=== PATIENT | male | born 1955 | race Caucasian/White ===

== ENCOUNTER 2017-02-09 19:45 | Emergency (ER) | payer OTHER ==
[2017-07-04] MEDS ORDERED: VENTOLIN HFA IN18 GM INH (13:16)
[2017-07-04] MEDS ORDERED: REQUIP4 MG PO (13:16)
[2017-07-04] MEDS ORDERED: DUONEB 2.5-0.5M1 AMP INH (13:17)
[2017-07-04] MEDS ORDERED: PRILOSEC20 MG PO (13:17)
[2017-07-04] MEDS ORDERED: VIBRAMYCIN100 MG PO (13:18)
[2017-07-04] MEDS ORDERED: NICOTINE PATCH1 EAC1 TOP (13:19)
== END 2017-02-09 21:40 ==
LOC: FER 19:45
DX: J44.9 Chronic obstructive pulmonary disease, unspecified (principal); F17.210 Nicotine dependence, cigarettes, uncomplicated; Z88.7 Allergy status to serum and vaccine; Z79.51 Long term (current) use of inhaled steroids
CPT/HCPCS: 94640; 94760; J2930

== ENCOUNTER 2017-07-24 01:53 | Emergency (ER) | payer OTHER ==
[~2017-07-24 01:53] MED LIST: DUONEB 2.5-0.5M1 AMP INH; NICOTINE PATCH1 EAC1 TOP; PRILOSEC20 MG PO; REQUIP4 MG PO; VENTOLIN HFA IN18 GM INH; VIBRAMYCIN100 MG PO
== END 2017-07-24 02:57 | disposition home or self-care (01) ==
LOC: FER 01:53
DX: M77.9 Enthesopathy, unspecified (principal); J44.9 Chronic obstructive pulmonary disease, unspecified; F17.210 Nicotine dependence, cigarettes, uncomplicated; Z88.8 Allergy status to other drugs, medicaments and biological substances; Z79.899 Other long term (current) drug therapy
CPT/HCPCS: 73110; J1885; J2930

== ENCOUNTER 2020-11-11 17:31 | Emergency (ER) | payer MEDICARE ==
[~2020-11-11 17:31] MED LIST changes: +ALBUTEROL0.5 ML/AMP INH; +ASPIRIN325 MG PO; +AZITHROMYCIN250 MG PO; +BACLOFEN 10MG T10 MG PO; +BACLOFEN 20MG T20 MG PO; +BENTYL10 MG PO; +CLONAZEPAM0.25 MG PO; +COLCRYS0.6 MG PO; +CYANOCOBAL1000 MCG/1 SC; +CYCLOBENZAPRINE10 MG PO; +DULCOLAX5 MG PO; +DULERA 200 MCG8.8 GM INH; +DUONEB 2.5-0.5M1 AMP NEB; +HYDROCODON-ACE1 EAC4 PO; +IBUPROFEN800 MG PO; +KEFLEX250 MG PO; +MEDROL 4MG DOSEP4 MG PO; +METRONIDAZOLE500 MG PO; +NAPROXEN500 MG PO; +NICOTINE PATCH1 EAC2 EXT; +NORCO 5-325 TA1 EACH PO; +ONDANSETRON HCL4 MG PO; +PERCOCET 10-321 EACH PO; +PERCOCET 5-3251 EACH PO; +PREDNISONE 10MG10 MG PO; +PREDNISONE 20MG20 MG PO; +PROAIR HFA8.5 GM INH; +ROBAXIN750 MG PO; +ROPINIROLE HCL2 MG PO; +SKELAXIN800 MG PO; +SPIRIVA 185 PUFFS/IN INH; +TESSALON PERLE100 M1 PO; +TOPROL XL 25MG25 MG PO; +TRAMADOL HCL50 MG PO; +ULTRAM50 MG PO; +VENTOLIN (2.5 MG/3 M INH; +VITAMIN D250000 UNIT PO; +ZOFRAN ODT4 MG SL; +ZOFRAN4 MG PO; +ZPAK PO
== END 2020-11-11 18:00 | disposition home or self-care (01) ==
LOC: FER 17:31
DX: R06.02 Shortness of breath (principal); R06.2 Wheezing; R05 Cough; Z53.8 Procedure and treatment not carried out for other reasons

== ENCOUNTER 2020-11-22 10:33 | Emergency (ER) | payer MEDICARE, OTHER ==
[2020-11-22 11:38] LABS: BASOPHIL 0.7 % (0-2); EOSINOPHIL 6.5 % (0-7); HCT 46.7 % (42.0-52.0); HGB 15.5 g/dl (13.2-18.0); LYMPHOCYTE 26.9 % (15-48); MCH 34.6 pg (25.0-31.0); MCHC 33.2 g/dL (32.0-36.0); MCV 104.2 fL (78.0-100.0); MONOCYTE 8.8 % (0-12); MPV 10.2 fL (6.0-9.5); NEUTROPHIL 56.7 % (41-80); NRBC 0; PLT 188 K/uL (150-400); RBC 4.48 M/uL (4.70-6.00); RDW 12.2 % (11.5-14.0)
[2020-11-22 11:59] LABS: ALBUMIN 3.4 g/dL (3.4-5.0); BILIRUBIN - TOTAL 0.7 mg/dL (0.2-1.0); BUN/CREAT RATIO (CALC) 10.4 RATIO; CREATININE 0.96 mg/dL (0.67-1.17); GLOBULIN (CALCULATION) 3.4 g/dL; POTASSIUM 3.8 mmol/L (3.5-5.1); TOTAL PROTEIN 6.8 g/dL (6.4-8.2)
[2020-11-22] MEDS ORDERED: MEDROL 4MG DOSEP4 MG PO (12:09)
== END 2020-11-22 12:10 | disposition home or self-care (01) ==
LOC: FER 10:33
PROVIDERS: Emergency Medicine
DX: J44.1 Chronic obstructive pulmonary disease with (acute) exacerbation (principal)
CPT/HCPCS: 36415; 71045; 80053; 85025; 93005; 94640; 94664; J2930

== ENCOUNTER 2020-11-29 14:43 | Inpatient (IN) | payer MEDICARE, SELFPAY ==
[2020-11-29 15:17] LABS: BASOPHIL 0.4 % (0-2); EOSINOPHIL 5.6 % (0-7); HCT 48.8 % (42.0-52.0); HGB 16.3 g/dl (13.2-18.0); MCH 34.9 pg (25.0-31.0); MCHC 33.4 g/dL (32.0-36.0); MCV 104.5 fL (78.0-100.0); MONOCYTE 10.3 % (0-12); MPV 10.1 fL (6.0-9.5); NEUTROPHIL 48.2 % (41-80); NRBC 0; PLT 199 K/uL (150-400); RBC 4.67 M/uL (4.70-6.00); RDW 12.2 % (11.5-14.0); WBC 7.7 K/uL (4.0-10.5)
[2020-11-29 15:35] LABS: ALBUMIN 3.6 g/dL (3.4-5.0); BILIRUBIN - TOTAL 0.9 mg/dL (0.2-1.0); BUN/CREAT RATIO (CALC) 12.4 RATIO; CREATININE 1.05 mg/dL (0.67-1.17); GLOBULIN (CALCULATION) 2.9 g/dL; POTASSIUM 4.9 mmol/L (3.5-5.1); TOTAL PROTEIN 6.5 g/dL (6.4-8.2)
--- NOTE | 2020-11-30 16:51 | NUR ---
11/30/20 MR. Landin is from his spouse. He lives with a friend and the friend's 3 daughters. Mr. Landin is experiencing anxiety. He was instructed in relaxation exercise. An appointment was scheduled at [facility] for 12/13/20 at 1:30. Patient was also provided with smoking cessation informational booklet. - A nebulizer was ordered from [facility]. - Mr. Landin would like home 02. He does not qualify. MS Thais RN, will monitor 02 saturation during sleep tonight.
[2020-12-01 07:02] LABS: BASOPHIL 0.1 % (0-2); EOSINOPHIL 0 % (0-7); HCT 45.1 % (42.0-52.0); HGB 14.8 g/dl (13.2-18.0); LYMPHOCYTE 6.2 % (15-48); MCH 34.4 pg (25.0-31.0); MCHC 32.8 g/dL (32.0-36.0); MCV 104.9 fL (78.0-100.0); MONOCYTE 3.6 % (0-12); MPV 10.6 fL (6.0-9.5); NEUTROPHIL 89.4 % (41-80); NRBC 0; PLT 191 K/uL (150-400); RDW 12.2 % (11.5-14.0); WBC 10.2 K/uL (4.0-10.5)
[2020-12-01 07:21] LABS: BUN/CREAT RATIO (CALC) 19.8 RATIO; CREATININE 0.86 mg/dL (0.67-1.17); POTASSIUM 4.2 mmol/L (3.5-5.1)
[2020-12-01] MEDS ORDERED: NICOTINE PATCH1 EAC2 TD (07:58)
[2020-12-01] MEDS ORDERED: CLONAZEPAM0.5 MG PO (07:58)
[2020-12-01] MEDS ORDERED: PREDNISONE 20MG20 MG PO (07:58)
[2020-12-01] MEDS ORDERED: AZITHROMYCIN250 MG PO (07:58)
[2020-12-01] MEDS ORDERED: MUCINEX 600MG600 MG PO (07:58)
[2020-12-01] MEDS ORDERED: SYMBICORT 80-10.2 GM INH (07:58)
[2020-12-01] MEDS ORDERED: REMERON15 MG PO (07:58)
[2020-12-01] MEDS ORDERED: SPIRIVA RESPIMAT4 G1 INH (07:58)
[2020-12-01] MEDS ORDERED: TOPROL XL 50 MG50 MG PO (07:58)
[2020-12-01] MEDS ORDERED: VENTOLIN HFA IN18 GM INH (10:19)
== END 2020-12-01 11:50 | disposition home or self-care (01) | DRG 192 ==
LOC: FER 14:43 → FMS 18:16
PROVIDERS: Emergency Medicine; ADMIT Allergy & Immunology Allergy
DX: J44.1 Chronic obstructive pulmonary disease with (acute) exacerbation (principal); F41.1 Generalized anxiety disorder; F17.200 Nicotine dependence, unspecified, uncomplicated; Z20.822 Contact with and (suspected) exposure to COVID-19; K21.9 Gastro-esophageal reflux disease without esophagitis; M19.90 Unspecified osteoarthritis, unspecified site; G25.81 Restless legs syndrome; F32.9 Major depressive disorder, single episode, unspecified; G89.29 Other chronic pain; M54.9 Dorsalgia, unspecified; Z90.49 Acquired absence of other specified parts of digestive tract; Z98.890 Other specified postprocedural states; Z85.89 Personal history of malignant neoplasm of other organs and systems; G47.00 Insomnia, unspecified
CPT/HCPCS: 36415; 71045; 71275; 80048; 80053; 83880; 84484; 85025; 85379; 93005; 94640; 94664; J0456; J1650; J2060; J2920; J2930; J7050; Q9967; U0002

== ENCOUNTER 2021-07-27 12:24 | Emergency (ER) | payer MEDICARE ==
[~2021-07-27 12:24] MED LIST changes: +CLONAZEPAM0.5 MG PO; +MUCINEX 600MG600 MG PO; +NICOTINE PATCH1 EAC2 TD; +REMERON15 MG PO; +SPIRIVA RESPIMAT4 G1 INH; +SPIRIVA18 MCG INH; +SYMBICORT 80-10.2 GM INH; +TOPROL XL 50 MG50 MG PO
[2021-07-27 13:33] LABS: BASOPHIL 0.8 % (0-2); EOSINOPHIL 4.7 % (0-7); HCT 49.4 % (42.0-52.0); HGB 16.7 g/dl (13.2-18.0); LYMPHOCYTE 24.7 % (15-48); MCH 35.8 pg (25.0-31.0); MCHC 33.8 g/dL (32.0-36.0); MCV 105.8 fL (78.0-100.0); MPV 10.5 fL (6.0-9.5); NRBC 0; PLT 207 K/uL (150-400); RBC 4.67 M/uL (4.70-6.00); RDW 12.5 % (11.5-14.0); WBC 7.8 K/uL (4.0-10.5)
[2021-07-27 14:50] LABS: CORONAVIRUS 2019 SARS-COV-2 NEGATIVE (NEGATIVE); INFLUENZA A NAA NEGATIVE (NEGATIVE)
[2021-07-27 14:51] LABS: ALBUMIN 3.6 g/dL (3.4-5.0); BILIRUBIN - TOTAL 0.9 mg/dL (0.2-1.0); BUN/CREAT RATIO (CALC) 10.8 RATIO; CREATININE 1.02 mg/dL (0.67-1.17); GLOBULIN (CALCULATION) 3.6 g/dL; POTASSIUM 4.7 mmol/L (3.5-5.1); TOTAL PROTEIN 7.2 g/dL (6.4-8.2)
[2021-07-27 14:55] LABS: BILIRUBIN NEGATIVE (NEGATIVE); BLOOD NEGATIVE Ery/uL (NEGATIVE); CLARITY CLEAR (CLEAR); COLOR YELLOW (YELLOW); GLUCOSE (U) NORMAL (NORMAL); LEUKOCYTES NEGATIVE Leu/uL (NEGATIVE); NITRITE NEGATIVE (NEGATIVE); PROTEIN NEGATIVE (NEGATIVE); UROBILINOGEN 0.2 mg/dL (0.2-1.0); pH 5.5 (5.0-9.0)
[2021-07-27] MEDS ORDERED: SINGULAIR10 MG PO (16:08)
[2021-07-27] MEDS ORDERED: PREDNISONE 20MG20 MG PO (16:08)
[2021-07-27] MEDS ORDERED: PRILOSEC20 MG PO (16:08)
[2021-07-27] MEDS ORDERED: VIBRAMYCIN100 MG PO (16:08)
== END 2021-07-27 16:54 | disposition home or self-care (01) ==
LOC: FER 12:24
PROVIDERS: Nurse Practitioner Family
DX: J44.1 Chronic obstructive pulmonary disease with (acute) exacerbation (principal); K21.9 Gastro-esophageal reflux disease without esophagitis; F17.210 Nicotine dependence, cigarettes, uncomplicated; Z88.7 Allergy status to serum and vaccine; Z20.822 Contact with and (suspected) exposure to COVID-19
CPT/HCPCS: 36415; 71046; 80053; 81003; 84484; 85025; 93005; J1100; J7030; U0002

== ENCOUNTER 2021-09-14 20:12 | Emergency (ER) | payer MEDICARE ==
[~2021-09-14 20:12] MED LIST changes: +SINGULAIR10 MG PO
[2021-09-14] MEDS ORDERED: MEDROL 4MG DOSEP4 MG PO (23:13)
[2021-09-14] MEDS ORDERED: CYCLOBENZAPRINE10 MG PO (23:13)
== END 2021-09-14 23:19 | disposition home or self-care (01) ==
LOC: FER 20:12
DX: S39.012A Strain of muscle, fascia and tendon of lower back, initial encounter (principal); J44.9 Chronic obstructive pulmonary disease, unspecified; X50.1XXA Overexertion from prolonged static or awkward postures, initial encounter
CPT/HCPCS: 96372; J1100; J1885; J2270

== ENCOUNTER 2021-11-02 01:03 | Emergency (ER) | payer MEDICARE ==
[2021-11-02 01:49] LABS: BASOPHIL 0.4 % (0-2); EOSINOPHIL 0.5 % (0-7); HCT 49.7 % (42.0-52.0); HGB 16.7 g/dl (13.2-18.0); MCH 35.2 pg (25.0-31.0); MCHC 33.6 g/dL (32.0-36.0); MCV 104.9 fL (78.0-100.0); MONOCYTE 9.5 % (0-12); NEUTROPHIL 74.5 % (41-80); NRBC 0; PLT 182 K/uL (150-400); RBC 4.74 M/uL (4.70-6.00); RDW 12.9 % (11.5-14.0); WBC 7.3 K/uL (4.0-10.5)
[2021-11-02 02:06] LABS: LACTIC ACID 1.5 mmol/L (0.4-1.9)
[2021-11-02 02:17] LABS: BUN/CREAT RATIO (CALC) 18.2 RATIO; CREATININE 0.99 mg/dL (0.67-1.17); POTASSIUM 4.2 mmol/L (3.5-5.1)
[2021-11-02 02:30] LABS: CORONAVIRUS 2019 SARS-COV-2 NEGATIVE (NEGATIVE); INFLUENZA A NAA NEGATIVE (NEGATIVE)
[2021-11-02] MEDS ORDERED: VENTOLIN HFA IN18 GM INH (06:07)
[2021-11-02] MEDS ORDERED: PREDNISONE 20MG20 MG PO (06:07)
[2021-11-02] MEDS ORDERED: VIBRAMYCIN100 MG PO (06:07)
[2021-11-03] MEDS ORDERED: REQUIP1 MG PO (02:48)
[2021-11-03] MEDS ORDERED: MYSOLINE50 MG PO (02:49)
[2021-11-03] MEDS ORDERED: SYMBICORT 80-10.2 GM INH (02:52)
== END 2021-11-02 06:22 | disposition home or self-care (01) ==
LOC: FER 01:03
PROVIDERS: Internal Medicine
DX: J44.1 Chronic obstructive pulmonary disease with (acute) exacerbation (principal); J20.9 Acute bronchitis, unspecified; J44.0 Chronic obstructive pulmonary disease with (acute) lower respiratory infection; R10.9 Unspecified abdominal pain; F17.210 Nicotine dependence, cigarettes, uncomplicated; Z20.822 Contact with and (suspected) exposure to COVID-19
CPT/HCPCS: 36415; 71045; 80048; 83605; 83690; 83880; 84145; 84484; 85025; 87040; 93005; 94640; 94664; J1100; J2543; J7512; U0002

== ENCOUNTER 2021-11-02 19:28 | Inpatient (IN) | payer MEDICARE ==
[~2021-11-02] VITALS: Ht 182.9 cm; Wt 82.6 kg
[2021-11-02 23:39] LABS: BASOPHIL 0.3 % (0-2); EOSINOPHIL 0 % (0-7); HCT 46.5 % (42.0-52.0); MCH 35.7 pg (25.0-31.0); MCHC 34.4 g/dL (32.0-36.0); MCV 103.8 fL (78.0-100.0); MONOCYTE 9.8 % (0-12); MPV 10.5 fL (6.0-9.5); NEUTROPHIL 74.5 % (41-80); NRBC 0; PLT 178 K/uL (150-400); RBC 4.48 M/uL (4.70-6.00); RDW 12.5 % (11.5-14.0); WBC 5.7 K/uL (4.0-10.5)
[2021-11-02 23:50] LABS: BUN/CREAT RATIO (CALC) 18.5 RATIO; CREATININE 0.92 mg/dL (0.67-1.17); POTASSIUM 3.8 mmol/L (3.5-5.1)
[2021-11-03 00:01] LABS: LACTIC ACID 2.4 mmol/L (0.4-1.9)
[2021-11-03 00:05] LABS: CORONAVIRUS 2019 SARS-COV-2 NEGATIVE (NEGATIVE); INFLUENZA A NAA NEGATIVE (NEGATIVE)
[2021-11-03] MEDS ORDERED: REQUIP1 MG PO (02:48)
[2021-11-03] MEDS ORDERED: MYSOLINE50 MG PO (02:49)
[2021-11-03] MEDS ORDERED: SYMBICORT 80-10.2 GM INH (02:52)
[2021-11-04 04:28] LABS: BASOPHIL 0.2 % (0-2); EOSINOPHIL 0 % (0-7); HCT 45.6 % (42.0-52.0); HGB 15.3 g/dl (13.2-18.0); LYMPHOCYTE 7.7 % (15-48); MCH 35.4 pg (25.0-31.0); MCHC 33.6 g/dL (32.0-36.0); MCV 105.6 fL (78.0-100.0); MONOCYTE 4.5 % (0-12); MPV 10.4 fL (6.0-9.5); NEUTROPHIL 86.3 % (41-80); NRBC 0; PLT 158 K/uL (150-400); RBC 4.32 M/uL (4.70-6.00); RDW 12.6 % (11.5-14.0)
[2021-11-04 04:47] LABS: BUN/CREAT RATIO (CALC) 18.7 RATIO; CREATININE 0.91 mg/dL (0.67-1.17); POTASSIUM 4.6 mmol/L (3.5-5.1)
[2021-11-04] MEDS ORDERED: MUCINEX 600MG600 MG PO (09:20)
[2021-11-04] MEDS ORDERED: MEDROL 4MG DOSEP4 MG PO (09:20)
[2021-11-04] MEDS ORDERED: ZPAK PO (09:20)
[2021-11-04] MEDS ORDERED: DUONEB 2.5-0.5M1 AMP INH (09:26)
== END 2021-11-04 12:30 | disposition home or self-care (01) | DRG 872 ==
LOC: FER 19:28 → FMS 11-03 01:39
PROVIDERS: Emergency Medicine Emergency Medical Services; Hospitalist; ADMIT Internal Medicine
DX: A41.9 Sepsis, unspecified organism (principal); E87.2 Acidosis; J47.0 Bronchiectasis with acute lower respiratory infection; R65.20 Severe sepsis without septic shock; Z20.822 Contact with and (suspected) exposure to COVID-19; J20.9 Acute bronchitis, unspecified; G25.0 Essential tremor; G25.81 Restless legs syndrome; K21.9 Gastro-esophageal reflux disease without esophagitis; F41.9 Anxiety disorder, unspecified; F17.200 Nicotine dependence, unspecified, uncomplicated; F32.A Depression, unspecified; Z90.49 Acquired absence of other specified parts of digestive tract; Z98.890 Other specified postprocedural states; Z79.899 Other long term (current) drug therapy
CPT/HCPCS: 36415; 71045; 80048; 83605; 83690; 83880; 84145; 84484; 85025; 87040; 93005; 94010; 94640; 94664; C9113; J0456; J0696; J1100; J1650; J1956; J2543; J2930; J3105; J3475; J7030; J7050; J7512; U0002

== ENCOUNTER 2021-11-19 13:34 | Emergency (ER) | payer MEDICARE ==
[~2021-11-19 13:34] MED LIST changes: +MYSOLINE50 MG PO; +REQUIP1 MG PO
[2021-11-19 15:11] LABS: BASOPHIL 0.4 % (0-2); EOSINOPHIL 0.5 % (0-7); HCT 44.8 % (42.0-52.0); HGB 15.3 g/dl (13.2-18.0); LYMPHOCYTE 14.6 % (15-48); MCH 35.5 pg (25.0-31.0); MCHC 34.2 g/dL (32.0-36.0); MCV 103.9 fL (78.0-100.0); MONOCYTE 10.6 % (0-12); MPV 9.9 fL (6.0-9.5); NEUTROPHIL 73.4 % (41-80); NRBC 0; PLT 146 K/uL (150-400); RBC 4.31 M/uL (4.70-6.00); RDW 12.1 % (11.5-14.0)
[2021-11-19 15:26] LABS: BUN/CREAT RATIO (CALC) 12.6 RATIO; CREATININE 1.11 mg/dL (0.67-1.17); POTASSIUM 3.8 mmol/L (3.5-5.1)
[2021-11-19] MEDS ORDERED: CYCLOBENZAPRINE10 MG PO (16:31)
[2021-11-19] MEDS ORDERED: NAPROXEN500 MG PO (16:31)
[2021-11-20] MEDS ORDERED: NEURONTIN100 MG PO (20:31)
== END 2021-11-19 16:41 | disposition home or self-care (01) ==
LOC: FER 13:34
PROVIDERS: Emergency Medicine
DX: S29.012A Strain of muscle and tendon of back wall of thorax, initial encounter (principal); J44.9 Chronic obstructive pulmonary disease, unspecified; F17.210 Nicotine dependence, cigarettes, uncomplicated
CPT/HCPCS: 36415; 71046; 80048; 85025; 85379; J1885

== ENCOUNTER 2021-11-20 17:38 | Emergency (ER) | payer MEDICARE ==
[2021-11-20 18:29] LABS: BASOPHIL 0.2 % (0-2); EOSINOPHIL 0.6 % (0-7); HCT 44.9 % (42.0-52.0); HGB 15.3 g/dl (13.2-18.0); LYMPHOCYTE 10.6 % (15-48); MCH 35.2 pg (25.0-31.0); MCHC 34.1 g/dL (32.0-36.0); MCV 103.2 fL (78.0-100.0); MPV 10.2 fL (6.0-9.5); NRBC 0; PLT 161 K/uL (150-400); RBC 4.35 M/uL (4.70-6.00); RDW 12.1 % (11.5-14.0); WBC 8.1 K/uL (4.0-10.5)
[2021-11-20 18:46] LABS: ALBUMIN 3.4 g/dL (3.4-5.0); BILIRUBIN - TOTAL 1.6 mg/dL (0.2-1.0); GLOBULIN (CALCULATION) 3.8 g/dL; POTASSIUM 3.9 mmol/L (3.5-5.1); TOTAL PROTEIN 7.2 g/dL (6.4-8.2)
[2021-11-20] MEDS ORDERED: NEURONTIN100 MG PO (20:31)
== END 2021-11-20 21:04 | disposition home or self-care (01) ==
LOC: FER 17:38
PROVIDERS: Emergency Medicine
DX: M54.9 Dorsalgia, unspecified (principal); J44.9 Chronic obstructive pulmonary disease, unspecified; F17.200 Nicotine dependence, unspecified, uncomplicated; Z20.822 Contact with and (suspected) exposure to COVID-19; Z91.048 Other nonmedicinal substance allergy status
CPT/HCPCS: 36415; 70450; 71250; 80053; 84484; 85025; 93005; J1100; J1170; J7030; U0002

== ENCOUNTER 2021-12-25 12:02 | Emergency (ER) | payer MEDICARE ==
[~2021-12-25 12:02] MED LIST changes: +NEURONTIN100 MG PO
[2021-12-25] MEDS ORDERED: NAPROXEN500 MG PO (13:52)
[2021-12-25] MEDS ORDERED: CYCLOBENZAPRINE10 MG PO (13:52)
== END 2021-12-25 14:09 | disposition home or self-care (01) ==
LOC: FER 12:02
DX: G89.29 Other chronic pain (principal); M43.6 Torticollis; J44.9 Chronic obstructive pulmonary disease, unspecified; Z88.7 Allergy status to serum and vaccine; F17.210 Nicotine dependence, cigarettes, uncomplicated
CPT/HCPCS: 72040; 96372; J1100; J1885

== ENCOUNTER 2022-03-08 18:10 | Emergency (ER) | payer MEDICARE ==
[~2022-03-08 18:10] MED LIST changes: +IMODIUM2 MG PO; +LEVAQUIN500 MG PO
== END 2022-03-08 20:55 | disposition home or self-care (01) ==
LOC: FER 18:10
DX: G43.909 Migraine, unspecified, not intractable, without status migrainosus (principal); J44.9 Chronic obstructive pulmonary disease, unspecified; F17.210 Nicotine dependence, cigarettes, uncomplicated
CPT/HCPCS: 70450; 96372; J1885; J2765; J3030